=== PATIENT | female | born 1970 | race Caucasian/White ===

== ENCOUNTER 2021-09-08 19:57 | Emergency (ER) | payer MEDICAID ==
[~2021-09-08] VITALS: Ht 152.4 cm; Wt 61.2 kg
[2021-09-08 20:40] VITALS: BP 132/74
--- NOTE | 2021-09-08 20:49 | NUR ---
TO LOBBY FOLLOWING TRIAGE
[2021-09-08 21:30] LABS: BASOPHILS % (AUTO) 0.7 % (0.0-2.0); EOSINOPHILS % (AUTO) 0.4 % (0.0-4.0); HEMATOCRIT 31.9 % (36-48); HEMOGLOBIN 10.4 g/dL (12.0-16.0); LYMPHOCYTES % (AUTO) 17.6 % (20.5-51.1); MEAN CORPUSCULAR HEMOGLOBIN 27 pg (27-31); MEAN CORPUSCULAR HGB CONC 33 g/dL (33-37); MEAN CORPUSCULAR VOLUME 81.1 fL (80-94); MONOCYTES # (AUTO) 0.5 K/uL (0.8-1.0); MONOCYTES % (AUTO) 8.8 % (1.7-9.3); NEUTROPHILS # (AUTO) 4.3 K/uL (1.8-7.7); NEUTROPHILS % (AUTO) 72.5 % (42.2-75.2); PLATELET COUNT (AUTO) 362 K/uL (140-450); RED BLOOD CELL COUNT(AUTO) 3.94 MIL/uL (4.20-5.40); RED CELL DISTRIBUTION WIDTH 15.7 % (11.6-13.7); WHITE BLOOD COUNT (AUTO) 5.9 K/uL (4.8-10.8)
--- NOTE | 2021-09-08 21:49 | NUR ---
PT TAKEN TO ULTRASOUND
[2021-09-08 21:50] LABS: ANION GAP 11.6 (8-16); CARBON DIOXIDE 27.6 mmol/L (21-32); CREATININE 0.6 mg/dL (0.6-1.3); POTASSIUM 4.2 mmol/L (3.5-5.1); TOTAL BILIRUBIN 0.3 mg/dL (0.0-1.0)
--- NOTE | 2021-09-08 22:55 | NUR ---
PT TAKEN TO BED 7
--- NOTE | 2021-09-08 23:05 | NUR ---
Dr. Dobbs examining patient.
--- NOTE | 2021-09-08 23:10 | NUR ---
NO NURSING INTERVENTIONS REQUIRED.
[2021-09-08] MEDS ORDERED: NAPR-54 PO (23:19)
[2021-09-08] MEDS ORDERED: MAG-27 PO (23:19)
[2021-09-08] MEDS ORDERED: ONDA-188 SL (23:19)
[2021-09-08 23:30] VITALS: BP 132/74
--- NOTE | 2021-09-08 23:30 | NUR ---
Patient discharged with v/s stable. Written and verbal after care instructions given and explained. Patient alert, oriented and verbalized understanding of instructions. Ambulatory with steady gait. All questions addressed prior to discharge. ID band removed. Patient advised to follow up with PMD. Rx of MYLANTA, NAPROSYN, ZOFRAN given. Patient educated on indication of medication including possible reaction and side effects. Opportunity to ask questions provided and answered.
== END 2021-09-08 23:30 | disposition home or self-care (01) ==
LOC: MED 19:57
DX: K80.20 Calculus of gallbladder without cholecystitis without obstruction (principal); R11.0 Nausea; Z79.899 Other long term (current) drug therapy; Z98.890 Other specified postprocedural states
CPT/HCPCS: 36415; 76700; 80053; 83690; 84703; 85025; 99284; Q0092

== ENCOUNTER 2022-12-20 13:30 | Emergency (ER) | payer MEDICAID, OTHER ==
[~2022-12-20] VITALS: Ht 154.9 cm; Wt 63.5 kg
[~2022-12-20 13:30] MED LIST: MAG-27 PO; NAPR-54 PO; ONDA-188 SL
[2022-12-20 14:03] VITALS: BP 150/83
--- NOTE | 2022-12-20 14:33 | NUR ---
PT AMB TO BED 2
[2022-12-20] MEDS ORDERED: ALUMINUM HYD/MAG/SIMETHICONE 30 ML UDC PO ONE (14:50)
[2022-12-20] MEDS ORDERED: FAMOTIDINE 20 MG TAB PO ONE (14:50)
[2022-12-20 15:06] LABS: BASOPHILS # (AUTO) 0.1 K/uL (0.00-0.22); BASOPHILS % (AUTO) 1.3 % (0.0-2.0); EOSINOPHILS # (AUTO) 0.1 K/uL (0-0.4); HEMOGLOBIN 11.2 g/dL (12.0-16.0); LYMPHOCYTES % (AUTO) 25.6 % (20.5-51.1); MEAN CORPUSCULAR HEMOGLOBIN 27 pg (27-31); MEAN CORPUSCULAR HGB CONC 33 g/dL (33-37); MEAN CORPUSCULAR VOLUME 82.1 fL (80-94); MONOCYTES # (AUTO) 0.4 K/uL (0.8-1.0); NEUTROPHILS # (AUTO) 2.4 K/uL (1.8-7.7); NEUTROPHILS % (AUTO) 60.1 % (42.2-75.2); PLATELET COUNT (AUTO) 312 K/uL (140-450); RED BLOOD CELL COUNT(AUTO) 4.14 MIL/uL (4.20-5.40); RED CELL DISTRIBUTION WIDTH 20.8 % (11.6-13.7); WHITE BLOOD COUNT (AUTO) 3.9 K/uL (4.8-10.8)
[2022-12-20 15:33] LABS: ALBUMIN 3.7 g/dL (3.4-5.0); ANION GAP 13.2 (8-16); CARBON DIOXIDE 22.8 mmol/L (21-32); CREATININE 0.7 mg/dL (0.6-1.3); TOTAL BILIRUBIN 0.2 mg/dL (0.0-1.0)
[2022-12-20] MEDS ORDERED: FAMO-92 PO (15:50)
[2022-12-20 16:00] VITALS: BP 150/83
== END 2022-12-20 16:00 | disposition home or self-care (01) ==
LOC: MED 13:30
DX: K29.70 Gastritis, unspecified, without bleeding (principal); K80.20 Calculus of gallbladder without cholecystitis without obstruction; E78.5 Hyperlipidemia, unspecified; Z98.51 Tubal ligation status; Z98.890 Other specified postprocedural states; Z79.899 Other long term (current) drug therapy; Z79.1 Long term (current) use of non-steroidal anti-inflammatories (NSAID)
CPT/HCPCS: 36415; 80053; 83690; 85025; 99284